=== PATIENT | male | born 1990 | race Caucasian/White ===

== ENCOUNTER → 2017-07-21 | Outpatient (CLI) | payer BC | LOC: FIMAGING 09:07 | PROVIDERS: ATTEND Family Medicine | DX: M25.571 Pain in right ankle and joints of right foot (principal); Y93.23 Activity, snow (alpine) (downhill) skiing, snowboarding, sledding, tobogganing and snow tubing ==

== ENCOUNTER 2018-02-07 19:03 | Emergency (ER) | payer BC ==
--- NOTE | 2018-02-07 19:27 | EDPHY ---
HPI/HX/ROS/PE/MDM Narrative: CHIEF COMPLAINT: Pelvic pain HISTORY OF PRESENT ILLNESS: This patient is a 28 year-old male complaining of pelvic pain. This is primarily in his bilateral flanks and radiates forward into his pelvic region. He endorses some pain radiating to his left testicle currently, but this began only 20 minutes ago. His symptoms began Monday afternoon after SCUBA diving on Monday and Monday in [facility]. He is concerned regarding possibility of decompression sickness. He had two dives on Monday, about 30-45 minutes in duration with depths up to 45 ft. Monday, he had 4 dives, 30-45 minutes in duration with depths up to 50 ft. He received one warning to slow his ascent from his SCUBA computer during these dives. He denies any other warnings or adverse events. He reports he had appropriate surface intervals between dives. He denies any unusual activities or heavy exertion, heavy lifting. He denies any otalgia or other ear discomfort. He flew back to [place] today and otherwise feels well. No difficulty urinating. No difficulty walking or numbness or paresthesias in his legs. No headaches. No nausea or vomiting. No skin rashes, pruritus. Denies history of kidney stones. No fever, chills, chest pain, shortness of breath, palpitations, diarrhea, headache, lightheadedness. REVIEW OF SYSTEMS: A comprehensive 10 system review of systems is otherwise negative aside from elements mentioned in the history of present illness and medical decision making. PAST MEDICAL HISTORY: Hypothyroid (levothyroxine) SOCIAL HISTORY: Nonsmoker. No illicit drug use. Lives in [place]. Employed. VITAL SIGNS: Reviewed by me GENERAL: Well-developed, well-nourished, resting comfortably, looks well. HEENT: Atraumatic. Eyes: No icterus, no injection. Mouth: moist mucous membranes. Normal TMS's No erythema or lesions. Neck: supple with no adenopathy. LUNGS: Clear to auscultation bilaterally, no wheezes, rhonchi or rales. CARDIAC: Regular rate and rhythm, no rubs, murmurs or gallops. ABDOMEN: Mild LLQ and suprapubic tenderness. Soft, nondistended, bowel sounds normal. BACK: No CVA tenderness. EXTREMITIES: No trauma. No edema. Range of motion is normal throughout. NEURO: Alert and oriented, grossly nonfocal. SKIN: Warm and dry, no rash. PSYCHIATRIC: Normal mentation, no agitation. Portions of this note were transcribed by a clinical medical assistant. I personally performed a history, physical exam, medical decision making, and confirmed accuracy of information the transcribed note. ED Course: 28 y/o male presents with bilateral flank/pelvic pain and concern regarding possible decompression sickness following a SCUBA diving trip three days ago. Plan for labs including CBC, chemistries, UA. Plan for x-ray abdomen. I have low suspicious for decompression sickness at this time give patient's history and presentation. Laboratory studies are completely unremarkable. Reviewed abdominal x-ray. Evidence of mild constipation. Reassessed patient. Discussed imaging and laboratory results. Discussed treatments for constipation. I reassured him that his symptoms are likely not due to decompression sickness, but even if they are, they should resolve within the next 2-3 days. He is relieved following our discussion. Plan to discharge home in good condition. Follow up and return precautions discussed. He is comfortable with this plan. MDM: Diff dx considered included decompression sickness, muscular pain, kidney stone , uti, constipation. - Data Points Imaging Results: Imaging Impressions Abdomen X-Ray 02/07/18 19:30 Impression: Mild constipation. Imaging: I viewed and interpreted images myself Laboratory Results: Laboratory Results 02/07/18 19:55 02/07/18 19:55 02/07/18 02/07/18 02/07/18 19:55 19:55 19:40 WBC 8.16 10^3/uL 10^3/uL (3.80-9.50) RBC 5.60 10^6/uL 10^6/uL (4.40-6.38) Hgb 17.0 g/dL g/dL (13.7-17.5) Hct 50.2 % % (40.0-51.0) MCV 89.6 fL fL (81.5-99.8) MCH 30.4 pg pg (27.9-34.1) MCHC 33.9 g/dL g/dL (32.4-36.7) RDW 12.6 % % (11.5-15.2) Plt Count 215 10^3/uL 10^3/uL (150-400) MPV 10.7 fL fL (8.7-11.7) Neut % (Auto) 53.9 % % (39.3-74.2) Lymph % (Auto) 35.3 % % (15.0-45.0) [place] % (Auto) 8.9 % % (4.5-13.0) Eos % (Auto) 0.9 % % (0.6-7.6) Baso % (Auto) 0.5 % % (0.3-1.7) Nucleat RBC Rel Count 0.0 % % (0.0-0.2) Absolute Neuts (auto) 4.40 10^3/uL 10^3/uL (1.70-6.50) Absolute Lymphs (auto) 2.88 10^3/uL 10^3/uL (1.00-3.00) Absolute Monos (auto) 0.73 10^3/uL 10^3/uL (0.30-0.80) Absolute Eos (auto) 0.07 10^3/uL 10^3/uL (0.03-0.40) Absolute Basos (auto) 0.04 10^3/uL 10^3/uL (0.02-0.10) Absolute Nucleated RBC 0.00 10^3/uL 10^3/uL (0-0.01) Immature Gran % 0.5 % % (0.0-1.1) Immature Gran # 0.04 10^3/uL 10^3/uL (0.00-0.10) Sodium 138 mEq/L mEq/L (135-145) Potassium 3.8 mEq/L mEq/L (3.3-5.0) Chloride 101 mEq/L mEq/L (97-110) Carbon Dioxide 28 mEq/l mEq/l (22-31) Anion Gap 9 mEq/L mEq/L (8-16) BUN 15 mg/dL mg/dL (7-23) Creatinine 0.8 mg/dL mg/dL (0.7-1.3) Estimated GFR > 60 Glucose 74 mg/dL mg/dL (70-100) Calcium 9.6 mg/dL mg/dL (8.5-10.4) Urine Color YELLOW Urine Appearance CLEAR Urine pH 6.0 (5.0-7.5) Ur Specific [place] 1.023 (1.002-1.030) Urine Protein NEGATIVE (NEGATIVE) Urine Ketones NEGATIVE (NEGATIVE) Urine Blood NEGATIVE (NEGATIVE) Urine Nitrate NEGATIVE (NEGATIVE) Urine Bilirubin NEGATIVE (NEGATIVE) Urine Urobilinogen NEGATIVE EU EU (0.2-1.0) Ur Leukocyte Esterase NEGATIVE (NEGATIVE) Urine RBC 1-3 /hpf /hpf (0-3) Urine WBC 1-3 /hpf /hpf (0-3) Ur Epithelial Cells NONE SEEN /lpf /lpf (NONE-1+) Urine Glucose NEGATIVE (NEGATIVE) Medications Given: Discontinued Medications Sodium Chloride (Ns) 1,000 mls @ 0 mls/hr IV ONCE ONE; Wide Open PRN Reason: Protocol Stop: 02/07/18 19:31 Last Admin: 02/07/18 19:53 Dose: 1,000 mls General Time Seen by Provider: 02/07/18 19:09 Initial Vital Signs: Initial Vital Signs Temperature (C) 37.1 C 02/07/18 19:06 Heart Rate 77 02/07/18 19:06 Respiratory Rate 18 02/07/18 19:06 Blood Pressure 141/92 H 02/07/18 19:06 O2 Sat (%) 97 02/07/18 19:06 O2 Delivery Mode Room Air O2 (L/minute) 2 Allergies/Adverse Reactions: No Known Allergies Allergy (Unverified 02/07/18 19:06) Departure - Departure Disposition: Home, Routine, Self-Care Clinical Impression: Muscle pain Back pain Qualifiers: Back pain location: low back pain Chronicity: acute Back pain laterality: bilateral Sciatica presence: without sciatica Qualified Code(s): M54.5 - Low back pain Abdominal pain Qualifiers: Abdominal location: left lower quadrant Qualified Code(s): R10.32 - Left lower quadrant pain Constipation Qualifiers: Constipation type: unspecified constipation type Qualified Code(s): K59.00 - Constipation, unspecified Condition: Good Instructions: Constipation (ED), Low Back Strain (ED) Additional Instructions: I see no clear evidence of a significant decompression sickness. However, if you have mild decompression sickness you should continue to improve over the next several days. I would recommend ibuprofen or Tylenol as needed for the back discomfort. It is possible that this is related to muscle strain. Heating pad or ice pack may help relieve this discomfort. Your mild abdominal pain may be related to mild constipation. I recommend obtaining a bottle magnesium citrate. Please consider taking a oral laxative such as dulcolax. If you continued to have abdominal pain, or worsening symptoms related constipation, you may obtain a bottle magnesium citrate. Please drink half the bottle mixed with about 16 oz of Gatorade. Following this you should have significant stool output. Your worsening despite the above treatments, especially if you developed neurologic symptoms such as numbness or tingling in your arms or legs, weakness , severe headache, or other concerns, please return to the emergency department or seek care urgently. Referrals: Henrry Toussaint [Primary Care Provider] - As per Instructions Report Scribed for: Ariadna Scales Report Scribed by: Rosio Plaza Date of Report: 02/07/18 Time of Report: 21:05
[2018-02-07] MEDS ORDERED: NS 1,000 ML IV ONE (19:30)
[2018-02-07 20:08] LABS: PLATELET COUNT 215 10^3/uL (150-400)
[2018-02-07 21:00] VITALS: BP 112/78
== END 2018-02-07 21:00 | disposition home or self-care (01) ==
DX: R10.32 Left lower quadrant pain (principal); K59.00 Constipation, unspecified; M79.1 Myalgia; M54.5 Low back pain; E86.9 Volume depletion, unspecified